=== PATIENT | male | born 1970 | race Caucasian/White ===

== ENCOUNTER 2024-05-06 04:15 | Day surgery (SDC) | payer OTHER ==
[2024-05-01 17:31] VITALS: BMI 25.8
[2024-05-06] MEDS ORDERED: HEPARIN NA (PORCINE) 5,000 UNITS/ML 1ML VIAL ONE ×2 (07:13→08:49)
[2024-05-06] MEDS ORDERED: LIDOCAINE HCL 1%, 10 MG/ML (20ML VIAL) ONE (07:13)
[2024-05-06] MEDS ORDERED: PROPOFOL 60 ML ONE (07:45)
[2024-05-06] MEDS ORDERED: MIDAZOLAM HCL 2 MG/2 ML SINGLE DOSE VIAL ONE (08:08)
[2024-05-06] MEDS ORDERED: oxyCODONE HCL 5 MG TABLET PO PRN ×2 (08:22→10:38)
[2024-05-06] MEDS ORDERED: ONDANSETRON 4 MG/2 ML VIAL IVPUSH PRN (08:22)
[2024-05-06] MEDS: LIDOCAINE HCL 1%, 10 MG/ML (20ML VIAL) NR ONE ×2 (08:29)
[2024-05-06] MEDS: HEPARIN NA (PORCINE) 5,000 UNITS/ML 1ML VIAL SQ ONE ×2 (08:48)
[2024-05-06] MEDS ORDERED: PROPOFOL 40 ML ONE ×2 (09:33→10:24)
[2024-05-06] MEDS ORDERED: LIDOCAINE 1%/EPI 1:100000 (20 ML MULTI DOSE VIAL) ONE (12:34)
[2024-05-06 14:43] VITALS: RESP 20; TEMP 97.5
[2024-05-06 15:36] VITALS: BP 133/82; PULSE 67
== END 2024-05-06 15:40 | disposition home or self-care (01) ==
LOC: JASU-SURG 04:15
PROVIDERS: ATTEND Surgery
PROC: 047Q3DZ Dilation of Left Anterior Tibial Artery with Intraluminal Device, Percutaneous Approach (ICD-10-PCS; 2024-05-06)
PROC: 047L3ZZ Dilation of Left Femoral Artery, Percutaneous Approach (ICD-10-PCS; principal; 2024-05-06 08:00)
DX: I70.212 Atherosclerosis of native arteries of extremities with intermittent claudication, left leg (principal); I10 Essential (primary) hypertension; E11.9 Type 2 diabetes mellitus without complications; B20 Human immunodeficiency virus [HIV] disease
CPT/HCPCS: 37231; 37233; C1877; 76000-TC-FY; 82962; 94760; C1760; J1644